=== PATIENT | male | born 1975 | race Caucasian/White ===

== ENCOUNTER 2020-08-15 16:48 | Emergency (ER) | payer SELFPAY ==
[2020-08-15 16:49] VITALS: BP 118/75; PULSE 100; RESP 16; TEMP 36.8; O2SAT 98; BMI 25.8
--- NOTE | 2020-08-15 17:05 | ED.VIS.GI ---
HPI HPI - GI History of Present Illness Chief Complaint: Fever Informant: patient Narrative Narrative: Patient has nausea, vomiting, diarrhea and felt warm. Started 2 days ago. He states he had nausea with vomiting but then turned into mostly diarrhea. He has no nausea currently. He denies any significant abdominal pain with this. He has had multiple episodes of diarrhea and felt dehydrated. He has been trying to rehydrate with sports drinks. He felt warm but did not check his temperature. He denies any cough or shortness of breath. Denies any Covid exposures. PFSH PFSH Allergy/AdvReac Type Severity Reaction Status Date / Time No Known Allergies Allergy Verified 08/15/20 16:49 Social History Smoking Status: Never smoker ROS ROS ED Constitutional Constitutional ED: Denies chills or fever(s) Eyes Eyes: Denies blurry vision, change in vision or diplopia ENT ENT ED: Denies ear pain, rhinorrhea or sore throat Cardiovascular Cardiovascular: Denies chest pain or palpitations Respiratory/Chest Respiratory/Chest: Denies cough, dyspnea or sputum Gastrointestinal Gastrointestinal: Reports diarrhea, nausea and vomiting Genitourinary Genitourinary ED: Denies dysuria, hematuria or urinary frequency Musculoskeletal Musculoskeletal: Denies back pain or neck pain Integumentary Denies change in pigmentation or rash Neurologic Neurologic: Denies headache(s), numbness or weakness Psychiatric Psychiatric: Denies anxiety or depression Endocrine Endocrinology: Denies polydipsia or polyuria EXAM Physical Exam Const Vital Signs: 08/15/20 16:49 08/15/20 17:15 Temperature 98.2 F Temperature Source Temporal Pulse Rate 100 Respiratory Rate 16 Blood Pressure 118/75 126/85 H Blood Pressure Mean 89 98 Pulse Ox 98 96 Oxygen Delivery Method Room Air Room Air Positive well nourished and well developed General Appearance ED: well developed and NAD HEENT Reports moist mucous membranes normocephalic and atraumatic; Negative for tenderness Eyes PERRL and EOMs intact bilaterally Neck supple and no JVD Chest Wall Chest: Negative for tenderness Resp normal respiratory effort and clear to auscultation bilaterally Effort and Inspection: Negative for respiratory distress Cardio regular rate, regular rhythm and no murmurs Rate: regular rate Rhythm: regular rhythm GI soft to palpation, non-tender and non-distended Palpation: soft Back/Spine no CVA tenderness and no thoracic nor lumbar tenderness Cervical Spine: Negative for cervical spine tenderness Extremity normal to inspection and full ROM General Extremety ED: Negative for tenderness Neuro oriented x3, CN's II-XII intact bilaterally and no sensory deficits noted Sensorium / Orientation: awake and alert Motor Exam: strength 5/5 throughout Psych mental status grossly normal Skin no rashes or lesions noted MDM MDM MDM Narrative Medical decision making narrative: The patient was given IV fluids. Labs are unremarkable except for potassium of 3.1. Glucose 110. Covid test is negative. Upon reevaluation he feels improved. This likely gastroenteritis. Patient will take antidiarrheal pills at home. He will continue his hydration. Lab Data Labs: Laboratory Results - last 24 hr 08/15/20 08/15/20 17:30 17:30 WBC 6.3 RBC 4.73 Hgb 14.1 Hct 42.1 MCV 89.0 MCH 29.8 MCHC 33.5 RDW Std Deviation 39.8 RDW Coeff of Sarah 12.1 Plt Count 219 MPV 9.3 Immature Gran % (Auto) 0.600 Neut % (Auto) 68.1 Lymph % (Auto) 14.6 L [place] % (Auto) 15.0 H Eos % (Auto) 1.4 Baso % (Auto) 0.3 Absolute Neuts (auto) 4.3 Absolute Lymphs (auto) 0.92 Nucleated RBC % 0 Sodium 137 Potassium 3.1 L Chloride 103 Carbon Dioxide 26.0 Anion Gap 8 BUN 12 Creatinine 0.93 Estim Creat Clear Calc 105.75 Est GFR (MDRD) Af Amer 114 Est GFR (MDRD) Non-Af 94 BUN/Creatinine Ratio 12.9 Glucose 110 H Calcium 8.6 Total Bilirubin 0.40 AST 13 L ALT 22 Alkaline Phosphatase 59 Total Protein 7.2 Albumin 3.4 Globulin 3.8 Albumin/Globulin Ratio 0.9 Discharge Plan Triage Chief Complaint: Fever ED Provider: Calos Kamara Dx/Rx/DC Orders Clinical Impression: Gastroenteritis Instructions: ED Gastroenteritis, Noninfectious Primary Care Provider: Care Physician,No Primary Referrals: Care Physician,No Primary [Primary Care Provider] - Disposition Disposition: Home, self care
[2020-08-15 17:15] VITALS: BP 126/85; O2SAT 96
[2020-08-15] MEDS: 0.9% Normal Saline 1,000 ML 1000 ML IV (17:33)
[2020-08-15 17:51] LABS: Absolute Lymphocyte Count 0.92 X10^3/uL (0.83-4.51); Absolute Neutrophil Count 4.3 X10^3/uL (2.0-7.7); Basophil# 0.02 X10^3/uL; Basophil% 0.3 % (0-1); Eosinophil# 0.09 X10^3/uL; Eosinophils% 1.4 % (0-5); Hematocrit 42.1 % (40-54); Hemoglobin 14.1 g/dL (13.0-16.5); Lymphocyte # 0.92 X10^3/ul (0.83-4.51); Lymphocyte % 14.6 % (19-41); Mean Corp Hgb Conc 33.5 g/dL (32-36); Mean Corpuscular Hgb 29.8 pg (27.0-32.0); Mean Platelet Vol. 9.3 fl (6.2-12.0); Monocyte# 0.94 X10^3/uL; NRBC Flagged by Analyzer 0 % (0-5); Neutrophil # 4.27 X10^3/uL (2.7-7.7); Neutrophil % 68.1 % (47-70); Platelet Count 219 K/mm3 (150-450); RBC Distribution Width CV 12.1 % (11.6-14.6); RBC Distribution Width SD 39.8 fl (35.1-43.9); Red Blood Count 4.73 M/mm3 (4.6-6.2); White Blood Count 6.3 K/mm3 (4.4-11.0)
[2020-08-15 18:16] LABS: ALB/GLOB Ratio 0.9 RATIO (0.9-2.4); AST(SGOT) 13 U/L (15-37); Alanine Aminotransfer ALT/SGPT 22 U/L (16-61); Albumin, Serum 3.4 g/dL (3.2-5.0); Alkaline Phosphatase 59 U/L (45-117); Anion Gap 8 (5-15); BUN 12 mg/dL (7-18); BUN/Creat Ratio 12.9 RATIO (10-20); Calcium,Total 8.6 mg/dL (8.5-10.1); Chloride 103 mmol/L (98-107); Creatinine, Serum 0.93 mg/dL (0.70-1.30); EST Glomerular Filtration Rate 94 mL/min (>60); Est Glom Filt Rate - Afr Amer 114 mL/min (>60); Estimated Creatinine Clearance 105.75 ml/min; Globulin 3.8 g/dL (2.2-4.2); Glucose 110 mg/dL (74-106); Potassium 3.1 mmol/L (3.5-5.1); Protein, Total 7.2 g/dL (6.4-8.2); Sodium Level 137 mmol/L (136-145)
[2020-08-15 18:42] VITALS: BP 118/79; PULSE 77; RESP 16; O2SAT 97
== END 2020-08-15 18:45 | disposition home or self-care (01) ==
PROVIDERS: Emergency Provider Emergency Medicine
DX: K52.9 Noninfective gastroenteritis and colitis, unspecified (principal)
CPT/HCPCS: 80053; 85025; 87426; 96360; 99283; J7030; A4216

== ENCOUNTER 2022-03-22 10:23 | Emergency (ER) | payer OTHER, BC, SELFPAY ==
[2022-03-22 10:24] VITALS: BP 151/89; PULSE 101; RESP 16; TEMP 36; O2SAT 99; BMI 27.2
--- NOTE | 2022-03-22 10:35 | ED.RN ---
LAC TO RT MIDDLE FINGER X 2, LAC TO RT RING FINGER.
--- NOTE | 2022-03-22 10:35 | EX.ED.UPPERE ---
HPI History of Present Illness Chief Complaint: Upper Extremity Injury Detail of Chief Complaint: Laceration right hand Informant: patient Occured/Mechanism Mechanism/Context: Yes direct blow Comment: Patient presents from work with injury to the MCP joint of his right index, long and ring finger. There is also injury to the dorsal side of the PIP joint right long finger. Onset/Context/Timing Onset: Hours Context: Sudden Onset Timing: Intermittent Quality of Pain: - (Presently has no pain) Location: Previously described Current Severity: Gone Maximum Severity: Moderate Worsened by: Injury Relieved by: Not at workable Associated Symptoms Associated Symptoms: Negative for Parasthesia, Weakness or Loss of Funtion Narrative Narrative: Patient is a 47-year-old male who is right-hand dominant presents with injury to his right index, long and ring finger. There is a wound over the MCP joint long finger where the extensor commonest tendon is exposed. Patient does not know his last tetanus shot. Patient denies antibiotic allergies. Patient is a NONsmoker. He has no significant past medical history. Prior records were reviewed and there is only an ER visit from 2020. He is not on any immunosuppressive meds. He has no history of valvular heart disease. Tetanus Immunization: Unknown Prior similar symptoms: No Recent Illness/Hospitalization: No PFSH PFSH Medical History no medical history no medical history Home Medications cephalexin 500 mg capsule 500 mg PO Q6 #12 CAPSULES 03/22/22 [Rx Last Taken Unknown] Allergy/AdvReac Type Severity Reaction Status Date / Time No Known Allergies Allergy Verified 03/22/22 10:26 Social History (Updated 03/22/22 @ 10:[address] Prasad Clements MD) household members: none Smoking Status: Never smoker substance use type: does not use ROS ROS ED Constitutional Constitutional ED: Denies chills, fever(s), subjective, sweats or weight loss Integumentary Reports other Details: Lacerations previously described ; Denies abscess, Abrasions or rash Neurologic Neurologic: Denies paresthesias or weakness Hematologic/Lymphatic Hematologic/Lymphatic: Denies easy bleeding or easy bruising EXAM Physical Exam Const Vital Signs: 03/22/22 10:24 Temperature 96.8 F L Temperature Source Temporal Pulse Rate 101 H Respiratory Rate 16 Blood Pressure 151/89 H Blood Pressure Mean 109 Pulse Ox 99 Oxygen Delivery Method Room Air Positive well nourished and well developed General Appearance ED: well developed and NAD; Negative for cyanotic or diaphoretic HEENT Reports moist mucous membranes normocephalic and atraumatic Eyes PERRL and EOMs intact bilaterally Neck full ROM and supple Resp normal respiratory effort Cardio regular rate and regular rhythm Extremity Negative for normal to inspection Extremity Narrative: Wound to the MCP joint of the index, long, ring and little finger and over the PIP joint of the long finger. The extensor commonest tendon is noted/visualized right long finger. There is an injury to the tendon. Neuro oriented x3, CN's II-XII intact bilaterally, moves all extremities, no focal motor deficits and no sensory deficits noted Neuro Narrative: Capillary fill is normal. Sensation is normal. Two-point termination is normal Psych mental status grossly normal Skin Skin Narrative: Wounds previously described MDM MDM MDM Narrative Medical decision making narrative: Tetanus was updated. Wounds will need to be cleaned and anesthetized. Suspect most will need suturing. This to be described in the procedure portion of the chart. Procedures Other Procedures Procedure(s): There is a laceration over the MCP joint left index finger and radial side distal the PIP joint these measure 6 mm each. The one over the MCP joint was a triangular flap-like laceration. This was closed with 5-0 Ethilon. 1 simple rope suture was placed. 1 simple interrupted suture was placed to close the laceration on the radial side of the left index finger. There is a stellate laceration over the MCP joint of the long finger. The extensor commonest tendon is exposed. There is a small defect noted on the dorsal side of the tendon. Area of involvement is 10 to 15%. There is also a laceration over the DIP joint. The laceration involving the MCP joint was total of 1.3 cm. 3 simple interrupted sutures were placed. The laceration over the DIP joint was closed using 5-0 Ethilon and 2 simple erupted sutures were placed. Total length 1 cm. There was a laceration over the MCP joint of the ring finger. There was no exposed tendon. This was closed using 5-0 Ethilon. 1 stitch was placed. This was a flap type laceration total length 6 mm. There were 2 lacerations MCP joint webspace of the little finger that were flap-like. The more proximal wound is a flap [place] required 2 stitches the more distal required 1. This was a flap-like laceration the total length is 1 cm. The wounds were anesthetized with 1% lidocaine by local infiltration. The left long finger was anesthetized by digital block. The wounds were irrigated with normal saline for a total amount of 250 cc. Patient tolerated the procedure well with. Discharge Plan Triage Chief Complaint: Upper Extremity Injury ED Provider: Prasad Clements Dx/Rx/DC Orders Clinical Impression: Laceration of left index finger, Laceration of left middle finger with tendon involvement, Laceration of left middle finger, Laceration of left ring finger, Laceration of left little finger Instructions: Treating Flexor Tendon Lacerations, ED Laceration, Hand: All Closures Prescriptions: New cephalexin [cephalexin] 500 mg capsule 500 mg PO Q6 Qty: 12 0RF Primary Care Provider: Care Physician,No Primary Referrals: Jacob Tejeda DO [Med Staff - Active Staff] - 2 Days for wound check Care Physician,No Primary [Primary Care Provider] - Activity Restrictions/Additional Instructions: 1. Take antibiotics until gone 2. If there is any evidence of infection return to the emergency department 3. Wear finger splint until seen by Dr. Tejeda Disposition Disposition: Home, Self Care
[2022-03-22] MEDS: Cephalexin 250 MG Capsule 500 MG PO (10:46)
[2022-03-22] MEDS: Diphth,Pertuss(Acell),Tet Vac 0.5 ML Vial IM (10:47)
[2022-03-22] MEDS: Lidocaine 1% (30 ml sdv) 30 ML Vial INFILT (10:55)
[2022-03-22 12:30] VITALS: RESP 16
--- NOTE | 2022-03-22 12:49 | CM.ED ---
Social Work Consult: PCP Referral source: Self referral This social worker aide met with patient in room. Introduced self and social worker aide role. Patient agreeable to speak with this social worker aide. This social worker aide broached topic of no PCP for patient. Patient confirms to have no PCP, patient states I just don't go to doctors. This social worker aide educating patient on benefits and value of having a PCP, patient voiced understanding and agreeable to this social worker aide provided patient with list of PCP's. Patient reports to have all other needs met in the community including housing, transportation, financial stability and food in the home. No further needs requested or identified. Candice Haines MSW, [facility]
== END 2022-03-22 14:35 | disposition home or self-care (01) ==
PROVIDERS: Emergency Provider Emergency Medicine; Visit Provider Emergency Medicine
DX: S61.211A Laceration without foreign body of left index finger without damage to nail, initial encounter (principal); S61.213A Laceration without foreign body of left middle finger without damage to nail, initial encounter; S61.215A Laceration without foreign body of left ring finger without damage to nail, initial encounter; Z23 Encounter for immunization; X58.XXXA Exposure to other specified factors, initial encounter
CPT/HCPCS: 12002; 90471; 90715; 99284